=== PATIENT | female | born 1995 | race Caucasian/White ===

== ENCOUNTER 2018-11-12 12:43 | Emergency (ER) | payer OTHER ==
[~2018-11-12] VITALS: Ht 167.6 cm; Wt 93.9 kg
--- OUTSIDE RECORDS SUMMARY | 2018-11-12 12:46 | XMS REPORT | Continuity of Care Document ---
Author Author [employer] Address Unknown Phone Unavailable Care Team Providers Care General Medical Practitioner Name Role Phone Road Hero Unavailable Unavailable Problems Problem Status Onset Date Classification Date Reported Comments Source Posterior rhinorrhea 12/12/2017 Diagnosis 12/12/2017 [facility] Common cold 12/12/2017 Diagnosis 12/12/2017 [facility] Body mass index 30+ - obesity 12/12/2017 Diagnosis 12/12/2017 [facility] Medications Medication Details Route Status Patient Instructions Ordering Provider Order Date Source 1 ML Hepatitis B Surface Antigen Vaccine 0.02 MG/ML Prefilled Syringe [Engerix-B] Engerix-B (PF) 20 mcg/mL intramuscular syringe USE DIRECTED Active [facility] Fluticasone propionate 0.05 MG/ACTUAT Metered Dose Nasal [place] fluticasone 50 mcg/actuation nasal spray,suspension [place] 2 sprays twice a day by intranasal route as directed for 10 days. Active [facility] influenza A virus A/[place] (H3N2) antigen 0.03 MG/ML / influenza A virus A/ (H1N1) antigen 0.03 MG/ML / influenza B virus B/[place] antigen 0.03 MG/ML Injectable Suspension [Fluvirin 3788-7339] Fluvirin 8002-5037 45 mcg (15 mcg x 3)/0.5 mL intramuscular suspension ADM 0.5ML IM UTD Active [facility] Septemberl 05/06 (21) 1 mg-20 mcg tablet [place] 05/06 (21) 1 mg- 20 mcg tablet TAKE ONE (1) TABLET(S) BY MOUTH ONCE A DAY. Active [facility] Allergies, Adverse Reactions, Alerts No Known Medication Allergies Immunizations No Data Provided for This Section Results No Data Provided for This Section Pathology Reports No Data Provided for This Section Diagnostic Reports No Data Provided for This Section Consultation Notes No Data Provided for This Section Discharge Summaries No Data Provided for This Section History and Physicals No Data Provided for This Section Vital Signs Vital Sign Value Date Comments Source Diastolic (mm Hg) 70 12/12/2017 [facility] Height 66 12/12/2017 [facility] Systolic (mm Hg) 114 12/12/2017 [facility] Weight 200 12/12/2017 [facility] Encounters Location Location Details Encounter Type Encounter Number Reason For Visit Attending Provider ADM Date DC Date Status Source NM - [facility] - [id number] Anderson PA-C: [address] [place] [address], Ph. [id number] Danuta Anderson 12/12/2017 [facility] Procedures No Data Provided for This Section Assessment and Plan No Data Provided for This Section Plan of Care No Data Provided for This Section Social History Social History Date Source Smoking Status Never Smoker 12/12/2017 [facility] Family History No Data Provided for This Section Advance Directives No Data Provided for This Section Functional Status No Data Provided for This Section
--- OUTSIDE RECORDS SUMMARY | 2018-11-12 12:46 | XMS REPORT | Encounter Summary ---
Author Organization Unknown Address [address] [place] [address] Phone [phone] Reason for Visit Medical Complaint Instructions 1. Common cold upper respiratory infection (cold): care instructions viral respiratory infection: care instructions fluticasone 50 mcg/actuation nasal spray,suspension 2. Posterior rhinorrhea 3. Body mass index 30+ - obesity Discussion Note explained to patient regarding viral vs bacterial infection. Encouraged adequate hydration and fluids. Discussed hand hygiene and CDC guidelines for viral infections. If new, worsening or persistance of symptoms follow up with PCP. If SOB, wheezing, fever, difficulty swallowing or abdominal pain go to ED. Pt verbalizes understanding and agrees with plan of care. May alternate Motrin and Tylenol for fever, pain or discomfort as needed per label instructions. Plan of Care Reminders Provider Appointments None recorded. Lab None recorded. Referral None recorded. Procedures None recorded. Surgeries None recorded. Imaging None recorded. Medications Name Start Date Engerix-B (PF) 20 mcg/mL intramuscular syringe USE DIRECTED fluticasone 50 mcg/actuation nasal spray,suspension [place] 2 sprays twice a day by intranasal route as directed for 10 days. Fluvirin [id number] 45 mcg (15 mcg x 3)/0.5 mL intramuscular suspension ADM 0.5ML IM UTD 05/06 (21) 1 mg-20 mcg tablet TAKE ONE (1) TABLET(S) BY MOUTH ONCE A DAY. Medications Administered None recorded. Vitals Height Weight BMI Blood Pressure 5 ft 6 in 200 lbs 32.3 kg/m2 114/70 mm[Hg] Lab Results None recorded. Allergies Code Code System Name Reaction Severity Status Onset NKDA Problems No Known Problems Procedures None recorded. Vaccine List None recorded. Social History Smoking Status Never Smoker Past Encounters 12/12/2017 Common Cold; Posterior Rhinorrhea; Body Mass Index 30+ - Obesity Danuta Anderson PA-C: [address] [place] [address], Ph. History of Present Illness Bcxkh-Okldacbgdg-Qtiwnbi Reported By: Patient HPI: Location: head/sinuses. Quality: nasal/sinus congestion. Duration: 3days. Severity: mild. Onset/Timing: sudden. Context: no sick contacts, no foreign travel, non-smoker. Modifying factors: OTC medication. Associated Symptoms: no sputum production, no shortness of breath, no wheezing, no change in number of pillows needed to sleep at night, no sweats, no significant weight gain, no significant weight loss, no morning cough, no sore throat, no vomiting, no diarrhea, no rash, no nausea, no fever, no muscle aches, headache Review of Systems Basic Reported By: Patient Constitutional: Constitutional: no fever Eyes: Eyes: no eye complaints Jcyg-Xpcp-Wdtot-Throat: Ears: no ear complaints. Nose: nose/sinus problems. Mouth/Throat: no sore throat, no bleeding gums, no mouth complaints, no teeth problems Cardiovascular: Cardiovascular: no chest pain, no shortness of breath, no known heart murmur Respiratory: Respiratory: no cough, no wheezing, no shortness of breath Gastrointestinal: Gastrointestinal: no abdominal pain, no vomiting / diarrhea Genitourinary: Genitourinary: no urinary complaints, no discharge Musculoskeletal: Musculoskeletal: no muscle aches, no muscle weakness, no arthralgias/joint pain, no back pain Skin: Skin: no abnormal / changing mole, no jaundice, no rashes Neurologic: Neurologic: no loss of consciousness, no weakness, no numbness, no seizures, no dizziness, no headaches, headache Physical Exam Adult Basic Reported By: Patient Constitutional: General Appearance: healthy-appearing, well-nourished, well-developed, overweight. Level of Distress: NAD. Ambulation: ambulating normally Psychiatric: Mental Status: active and alert. Orientation: to time, to place, to person Eyes: Lids and Conjunctivae: non-injected, no discharge, no pallor. Pupils: PERRLA. EOM: EOMI. Sclerae: non-icteric. Vision: acuity grossly intact Ukc-Oudw-Lhxil-Throat: Ears: no lesions on external ear, no outer ear tenderness, EACs clear, TMs clear. Hearing: no hearing loss. Nose: no lesions on external nose, nares patent, no septal deviation, nasal passages clear, no sinus tenderness, nasal discharge, nasal discharge--purulent, nasal discharge--rhinorrhea, post nasal drip; boggy turbinates. Lips, Teeth, and Gums: no mouth or lip ulcers, no bleeding gums, normal dentition. Oropharynx: moist mucous membranes, no erythema, no exudates, tonsils not enlarged; cobblestoning Neck: Neck: supple, trachea midline, no masses, FROM. Lymph Nodes: no cervical LAD, no supraclavicular LAD Lungs: Respiratory effort: no dyspnea, no tachypnea, no use of accessory muscles, no intercostal retractions. Auscultation: breath sounds normal Cardiovascular: Heart Auscultation: RRR, no murmurs
--- OUTSIDE RECORDS SUMMARY | 2018-11-12 12:46 | XMS REPORT | Clinical Summary ---
Author Author [employer] [facility] [employer] Address Unknown Phone Unavailable Care Team Providers Care Baby Sitter Name Role Phone Madison Garrett MD PCP Allergies No Known Allergies Medications End Date Status Medication Sig Dispensed Refills Start Date Active norethindrone ac-eth Take 1 tablet 63 tablet 3 estradiol (MICROGESTIN by mouth 9 05/06) 1-20 mg-mcg per daily. " used tabletIndications: Well the pill woman exam with routine club" gynecological exam 09/18/2018 Discontinued norethindrone ac-eth Take 1 tablet 0 estradiol (MICROGESTIN by mouth 05/06) 1-20 mg-mcg per daily. " used tablet the pill club" Active Problems Not on file Encounters Care Team Description Date Type Specialty Sweta Davenport MD Well woman exam with routine gynecological exam (Primary Dx) 09/18/2018 Office Visit Obstetrics and Gynecology after 11/11/2017 Family History Medical History Relation Name Comments Diabetes Father Heart disease Father Pancreatic cancer Father Hypertension Mother Hypothyroidism Mother Relation Name Status Comments Father Mother Alive Social History Date Tobacco Use Types Packs/Day Years Used Never Smoker Smokeless Tobacco: Never Used Alcohol Use Drinks/Week oz/Week Comments Yes 2-3 per week socially Sex Assigned at Date Recorded Not on file Industry Job Start Date Occupation Not on file Not on file Not on file Travel End Travel History Travel Start No recent travel history available. Last Filed Vital Signs Time Taken Vital Sign Reading 09/18/2018 3:42 PM CDT Blood Pressure 117/83 09/18/2018 3:42 PM CDT Pulse 85 - Temperature - - Respiratory Rate - - Oxygen Saturation - - Inhaled Oxygen - Concentration 09/18/2018 3:42 PM CDT Weight 94.3 kg (208 lb) 09/18/2018 3:42 PM CDT Height 167.6 cm (5' 6") 09/18/2018 3:42 PM CDT Body Mass Index 33.57 Plan of Treatment Care Team Description Date Type Specialty Sweta Davenport MD [address] [facility] [address] [place] [address] 09/19/2019 Office Visit Obstetrics and Gynecology Health Maintenance Due Date Last Done Comments INFLUENZA VACCINE 11/15/2018 Procedures Comments Procedure Name Priority Date/Time Associated Diagnosis CHLAMYDIA/N. GONORRHOEAE Routine 09/18/2018 RNA, TMA 4:10 PM CDT THINPREP TIS PAP REFLEX Routine 09/18/2018 HPV MRNA E6/E7 4:10 PM CDT after 11/11/2017 Results * CHLAMYDIA/N. GONORRHOEAE RNA, TMA (09/18/2018 4:10 PM CDT) Chlamydia NOT DETECTED NOT DETECTED Achieve3000 trachomatis [facility] RNA, TMA ING II Neisseria NOT DETECTED NOT DETECTED Achieve3000 gonorrhoeae [facility] RNA, TMA ING II (Always Comment: [facility] message) This test was performed using [facility] the APTIMA COMBO2 Assay ING II ([employer] The analytical performance characteristics of this assay, when used to test SurePath specimens have been determined by [employer]. Specimen Resulting Agency Comment Performing Organization Information: Site ID: [id number] [facility]: [facility] Address: [address] [place] [id number] Director: Dr. Rommel Oconnell Performing Organization Address City/State/Zipcode Phone Number [place] [address] [address] II * THINPREP TIS PAP REFLEX HPV mRNA E6/E7 (09/18/2018 4:10 PM CDT) Clinical None given [facility] information [facility] [place] Date of last NONE GIVEN [facility] menstrual [facility]AGNOSTICS period [facility] Prev. pap: NONE GIVEN [facility] [place] Prev. bx: NONE GIVEN [facility] [place] Source None given [facility] [place] Statement of Comment: [facility] adequacy Satisfactory for evaluation. DIAGNOSTICS Endocervical/transformation [facility]ANG zone component present. Age and/or menstrual status not provided Interpretation/ Comment: Negative for [facility] result: intraepithelial lesion or DIAGNOSTICS malignancy. [facility]AGO Comment Comment: [facility] Tip of collection device in DIAGNOSTICS vial [facility] This Pap test has been evaluated with computer assisted technology. [employer] Comment: [facility] t YL, CT(ASCP) DIAGNOSTICS CT screening location: [facility] [address] [place] [address], [facility] [address] Comment Comment: [place] EXPLANATORY NOTE: DIAGNOSTICS The Pap is a screening test [facility]ANG for cervical cancer. It is not a diagnostic test and is subject to false negative and false positive results. It is most reliable when a satisfactory sample, regularly obtained, is submitted with relevant clinical findings and history, and when the Pap result is evaluated along with historic and current clinical information. Specimen Resulting Agency Comment Performing Organization Information: Site ID: [id number] Name: [facility] Address: [address] [place] [phone] Director: Laurita Sheppard Performing Organization Address City/State/Zipcode Phone Number [place] [address] after 11/11/2017 Insurance Type Payer Benefit Subscriber ID Effective Phone Address Plan / Dates Group PPO AETNA AETNA PPO xxxxxxxxxx [id number] OPEN resent CHOICE Advance Directives Patient has advance care planning documents on file. For more information, anita tejada contact: Tiago Olivares [address] [place] [address]
--- NOTE | 2018-11-12 14:44 | Diagnostic Imaging Report ---
EXAMINATION: CHEST 2 VIEWS INDICATION: Trauma COMPARISON: None FINDINGS: TUBES and LINES: None. LUNGS: The lung volumes are normal. No focal consolidation or pulmonary edema. PLEURA: No pleural effusion or pneumothorax. HEART AND MEDIASTINUM: The cardiomediastinal silhouette is normal in size and contour. BONES AND SOFT TISSUES: No acute fracture or dislocation. UPPER ABDOMEN: No free air under the diaphragm. IMPRESSION: No radiographic evidence of acute trauma to the thorax. Clear lungs. Signed by: Gege Posey MD on 11/12/2018 2:41 PM
[2018-11-12 14:59] VITALS: BP 130/75
== END 2018-11-12 15:01 | disposition home or self-care (01) ==
LOC: ER 12:43
DX: G89.11 Acute pain due to trauma (principal); S20.211A Contusion of right front wall of thorax, initial encounter; S00.83XA Contusion of other part of head, initial encounter; V43.52XA Car driver injured in collision with other type car in traffic accident, initial encounter; Y92.488 Other paved roadways as the place of occurrence of the external cause
CPT/HCPCS: 71046; 81025; 99283

== ENCOUNTER 2018-12-12 16:00 | Outpatient (RCR) | payer OTHER | END 2018-12-15 | LOC: OT 16:00 | PROVIDERS: ATTEND Specialist | DX: S63.521A Sprain of radiocarpal joint of right wrist, initial encounter (principal); M25.531 Pain in right wrist; M53.82 Other specified dorsopathies, cervical region; S13.4XXD Sprain of ligaments of cervical spine, subsequent encounter ==

== ENCOUNTER → 2019-01-14 | Outpatient (RCR) | payer OTHER | LOC: OT 12-25 16:23 | PROVIDERS: ATTEND Specialist | DX: S63.521A Sprain of radiocarpal joint of right wrist, initial encounter (principal); S13.4XXA Sprain of ligaments of cervical spine, initial encounter ==

== ENCOUNTER 2019-02-04 16:26 | Outpatient (RCR) | payer OTHER | END 2019-02-14 | LOC: OT 16:26 | PROVIDERS: ATTEND Specialist | DX: S63.521A Sprain of radiocarpal joint of right wrist, initial encounter (principal); S13.4XXA Sprain of ligaments of cervical spine, initial encounter | CPT/HCPCS: 97139 ==